=== PATIENT | female | born 1960 | race Caucasian/White ===

== ENCOUNTER 2019-03-25 12:43 | Emergency (ER) | payer OTHER ==
[~2019-03-25] VITALS: Ht 167.6 cm; Wt 77.1 kg
[2019-03-25] MEDS ORDERED: Prednisone20 MG PO (14:09)
[2019-03-25] MEDS ORDERED: CYCL10 PO (14:09)
[2019-03-25] MEDS ORDERED: GABA300 PO (14:12)
[2019-03-25] MEDS ORDERED: SINEMET 25-1001 EACH PO (14:12)
[2019-03-25] MEDS ORDERED: CLON.5 PO (14:14)
== END 2019-03-25 14:44 | disposition home or self-care (01) ==
LOC: ER 12:43
DX: M54.41 Lumbago with sciatica, right side (principal); Z88.1 Allergy status to other antibiotic agents; Z88.8 Allergy status to other drugs, medicaments and biological substances; Z91.040 Latex allergy status
CPT/HCPCS: 96372; 99283-25; J1885; J7512

== ENCOUNTER → 2020-03-04 | Outpatient (CLI) | payer OTHER ==
[~2020-03-04] MED LIST: CLON.5 PO; CYCL10 PO; GABA300 PO; Prednisone20 MG PO; SINEMET 25-1001 EACH PO
== END | disposition home or self-care (01) ==
LOC: LAB SHORT 10:16 → PLD 10:16
DX: D48.5 Neoplasm of uncertain behavior of skin (principal)
CPT/HCPCS: 88305

== ENCOUNTER 2020-03-24 10:31 | Day surgery (SDC) | payer OTHER ==
[~2020-03-24] VITALS: Ht 167.6 cm; Wt 64.8 kg
--- NOTE | 2020-03-24 11:23 | NUR ---
03/24/20 1123 Brooklyn Schofield INTERSCALENE NERVE BLOCK PERFORMED IN PRE-OP 1116: TIME OUT CONDUCTED 1117: SITE CHECK CONFIRMED, PROCEDURE START 1122 : PROCEDURE END 6L/MIN VIA NON-REBREATHER & PULSE OX ON THROUGHOUT PROCEDURE. PT TOLERATED WELL, NO ISSUES OR COMPLICATIONS. DR. YOUNG ADMINISTERED 2MG VERSED IVP & 100MCG FENTANYL IVP PRIOR TO START OF BLOCK.
--- NOTE | 2020-03-24 12:02 | NUR ---
03/24/20 1202 Francis Paredes 1 MG EPI ADDED TO EACH OF THE FIRST THREE BAGS OF LR FOR IRRIGATION.
== END 2020-03-24 13:33 | disposition home or self-care (01) ==
LOC: ORSCSDS 10:31
PROVIDERS: Orthopaedic Surgery
PROC: 0LQ24ZZ Repair Left Shoulder Tendon, Percutaneous Endoscopic Approach (ICD-10-PCS; principal; 2020-03-24 12:00)
PROC: 0LS44ZZ Reposition Left Upper Arm Tendon, Percutaneous Endoscopic Approach (ICD-10-PCS; principal; 2020-03-24 12:00)
PROC: 0RNK4ZZ Release Left Shoulder Joint, Percutaneous Endoscopic Approach (ICD-10-PCS; principal; 2020-03-24 12:00)
DX: S46.002A Unspecified injury of muscle(s) and tendon(s) of the rotator cuff of left shoulder, initial encounter (principal); M75.22 Bicipital tendinitis, left shoulder; M75.42 Impingement syndrome of left shoulder; M19.012 Primary osteoarthritis, left shoulder; G20 Parkinson's disease; Z87.891 Personal history of nicotine dependence
CPT/HCPCS: C1713; J0171; J0690; J1100; J2250; J2370; J2405; J2704; J3010; J7120

== ENCOUNTER → 2023-01-23 | Outpatient (CLI) | payer OTHER | END | disposition home or self-care (01) | LOC: LAB SHORT 16:29 → LAB 16:29 | DX: R35.0 Frequency of micturition (principal) | CPT/HCPCS: 87086 ==